=== PATIENT | male | born 1945 | race Caucasian/White ===

== ENCOUNTER 2023-10-26 12:36 | Emergency (ER) | payer MEDICARE, OTHER, SELFPAY ==
[2023-10-26] VITALS (31 sets, daily range): BP systolic 156–241; BP diastolic 78–112; PULSE 55–75; RESP 8–24; TEMP 36.6–36.9; O2SAT 94–99; BMI 36.4
--- NOTE | 2023-10-26 12:44 | DI.RAD.S_ITS ---
PROCEDURE: XR CHEST 1V INDICATIONS: chest pain TECHNIQUE: One view of the chest was acquired. COMPARISON: [facility], CT, THORAX WITHOUT CONTRAST, 07/09/2016, 9:42. [facility], CR, CHEST 1 VIEW, 02/22/2013, 12:06. FINDINGS: Surgical changes and devices: None. Lungs and pleura: Lungs are clear. No pleural effusions or pneumothorax. Mediastinum: Mediastinal contours appear normal. Heart size is enlarged. Bones and chest wall: No suspicious bony lesions. Overlying soft tissues appear unremarkable. IMPRESSION: No acute cardiopulmonary abnormality is seen. Dictated by: Gladis Becker M.D. on 10/26/2023 at 14:09 Approved by: Gladis Becker M.D. on 10/26/2023 at 14:11
--- NOTE | 2023-10-26 12:49 | EKG_ITS ---
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
[2023-10-26 13:30] LABS: Add Manual Diff / Slide Review NO; Basophils Absolute Auto 0 /uL (0-100); Basophils Percent Auto 0.5 % (0-2); Eosinophils Absolute Auto 300 /uL (0-450); Eosinophils Percent Auto 5.3 % (2-4); Hematocrit 36.6 % (41-53); Hemoglobin 12.5 g/dL (13.5-17.5); Lymphocytes Absolute Auto 1500 /uL (1100-4500); Lymphocytes Percent Auto 27.9 % (25-40); Mean Corpuscular HGB Conc 34.1 % (30-36); Mean Corpuscular Volume 99.6 fL (80-100); Monocytes Absolute Auto 300 /uL (0-900); Monocytes Percent Auto 5.7 % (3-14); Neutrophils Absolute Auto 3200 /uL (1500-7000); Neutrophils Percent Auto 60.6 % (50-75); Platelet Count 174 X10^3/uL (150-400); Red Blood Cell Count 3.67 X10^6/uL (4.5-5.9); Red Cell Distribution Width 17.1 % (11.6-14.8); White Blood Cell Count 5.4 X10^3/uL (4.5-11.0)
[2023-10-26 13:34] LABS: INR 1.1 (0.9-1.3); Prothrombin Time 12.2 SECONDS (9.4-12.5)
--- NOTE | 2023-10-26 13:34 | PC.NURSE ---
pt is here for elevated blood pressure that he noticed two days ago. reports no chest pain, vision changes, n/v, headaches. takes metoprolol. has family in town so has been drinking several whiskey drinks daily.
[2023-10-26 13:36] LABS: PTT Partial Thromboplastin Tim 35 SECONDS (25.1-36.5)
[2023-10-26 13:38] LABS: Alanine Aminotransferase 28 IU/L (<50); Albumin 3.9 g/dL (3.5-5.0); Albumin Globulin Ratio 1.6 (1.0-2.8); Alkaline Phosphatase 99 U/L (38-126); Aspartate Aminotransferase 30 IU/L (17-59); BUN Creatinine Ratio 22.5 (6-22); Bilirubin Total 0.8 mg/dL (0.2-1.3); Blood Urea Nitrogen 18 mg/dL (9-20); Calcium 9.5 mg/dL (8.4-10.2); Carbon Dioxide 28 mmol/L (22-32); Chloride 104 mmol/L (98-107); Creatine Kinase 84 U/L (55-170); Estimated Glomerular Filt Rate > 60 mL/min (>60); Globulin 2.5 g/dL (1.7-4.1); Glucose 148 mg/dL (80-110); HEMOLYSIS < 15 (0-50); Lipase 62 U/L (23-300); Magnesium 2.1 mg/dL (1.6-2.3); Potassium 4.1 mmol/L (3.4-5.1); Sodium 134 mmol/L (137-145); Total Protein 6.4 g/dL (6.3-8.2)
[2023-10-26 13:50] LABS: Troponin I < 0.012 ng/mL (0.01-0.034)
--- NOTE | 2023-10-26 14:03 | ED.GENADULT ---
HPI - General Adult General Chief complaint: Hypertension Stated complaint: Rapid heartbeat, cardio patient Time Seen by Provider: 10/26/23 13:36 Source: patient Mode of arrival: Ambulatory History of Present Illness HPI narrative: Patient here with for asymptomatic elevated blood pressure. They are visiting from out of state. They live in [place]. They are visiting here family for of a new great grandchild. Patient takes metoprolol daily for high blood pressure. He was taken off lisinopril 7 months ago. He is uncertain if he was ever on 2 blood pressure medications. Patient denies denies any chest pain headache shortness of breath numbness tingling or weakness. No palpitations. Patient has history of coronary stent years ago. History of diabetes. Patient states and agrees they have not been eating there usual diet. Has been eating out at restaurants a lot since visiting here last . He has been drinking alcohol which he usually does not. He does not get intoxicated. He noticed that his hands and feet have been swollen since this dietary change visiting here last week. He states there was no reason why he measured his blood pressure last Thursday but noticed that his baseline systolic 120 or sometimes 130 had change to upwards 170 or 180 systolic morning or nighttime. Again, denies any symptoms. No headache no numbness tingling or weakness no slurred speech Related Data Home Medications Medication Instructions Recorded Confirmed COENZYME Q10/VITAMIN E (CO-Q-10 300 mg PO QDAY ##0 02/22/13 200mg) Glucosamine Sulfate (GLUCOSAMINE) 1,000 mg PO QDAY #0 caps 02/22/13 OMEPRAZOLE 20 mg PO QDAY #0 caps 02/22/13 [ATOVASTATIN] 20 QDAY ##0 02/22/13 cetirizine 10 mg tablet 10 mg PO #0 tabs 02/22/13 doxazosin 4 mg tablet (Cardura) 4 mg PO QDAY #0 tabs 02/22/13 lisinopril 10 mg tablet 10 mg PO QDAY #0 tabs 02/22/13 testosterone cypionate 200 mg/mL 200 mg IM ##0 02/22/13 intramuscular oil (Depo-Testosterone) venlafaxine 37.5 mg tablet 37.5 mg PO QDAY #0 tabs 02/22/13 Previous Rx's Medication Instructions Recorded lisinopril 20 mg tablet 20 mg PO DAILY #14 tabs 10/26/23 Allergies Allergy/AdvReac Type Severity Reaction Status Date / Time Penicillins [PENICILLINS] Allergy Unknown Verified 10/26/23 12:58 Review of Systems Review of Systems Narrative: GENERAL: negative chills, fatigue, malaise, fever, sweats. HEENT: negative sinus pain, ear pain, sore throat RESPIRATORY: negative dyspnea, cough CARDIOVASCULAR: negative chest pain, palpitations GASTROINTESTINAL: negative nausea, vomiting, abdominal pain : negative dysuria, frequency, hematuria MUSCULOSKELETAL: negative muscle or bony pain, positive peripheral edema SKIN: negative rash, skin lesions NEUROLOGIC: negative weakness, numbness ROS Unobtainable: All systems reviewed & are unremarkable except as noted in HPI and below Patient History Social History Smoking Status: Former smoker Smoking Status: Former smoker alcohol intake frequency: other Substance Use Type: does not use Exam Narrative Exam Narrative: GENERAL: in no distress, not toxic not dyspneic HEAD: Normocephalic. EYES: Pupils equal round ENT: Mucous membranes moist. NECK: Trachea midline. CARDIOVASCULAR: Regular rate and rhythm RESPIRATORY: Clear to auscultation. Breath sounds equal bilaterally. No wheezes, rales, or rhonchi. GASTROINTESTINAL: Abdomen soft, non-tender EXTREMITIES: No gross deformities. Examination limbs, edematous fingers, patient states can not get his wedding band off. There is 2+ edema of the ankles. BACK: No flank tenderness. NEURO: AOx4. 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 Negative pronator drift. SKIN: Warm and dry PSYCH: Not anxious, is cooperative Initial Vital Signs Initial Vital Signs: Vital Signs Pulse Oximetry 97 10/26/23 12:48 Course Orders Ordered: Discontinued Medications Aspirin (Aspirin 81 Mg Chew Tab) 324 mg PO NOW ONE Stop: 10/26/23 12:45 Last Admin: 10/26/23 12:51 Dose: Not Given Documented By: DARIELA Hydralazine HCl (Hydralazine 20 Mg/Ml Vial) 10 mg IV NOW ONE Stop: 10/26/23 17:21 Last Admin: 10/26/23 18:00 Dose: 10 mg Documented By: Hydrochlorothiazide (Hydrochlorothiazide 25 Mg Tablet) 25 mg PO NOW ONE Stop: 10/26/23 14:13 Last Admin: 10/26/23 14:39 Dose: 25 mg Documented By: ALBERTO Lisinopril (Lisinopril 20 Mg Tablet) 20 mg PO NOW ONE Stop: 10/26/23 15:49 Last Admin: 10/26/23 16:00 Dose: 20 mg Documented By: ALBERTO Vital Signs Vital signs: Vital Signs - 8 hr 10/26/23 12:48 10/26/23 12:49 10/26/23 12:49 Temperature Pulse Rate 64 Respiratory Rate 21 Blood Pressure 197/89 H Pulse Oximetry 97 97 Oxygen Delivery Method 10/26/23 12:52 10/26/23 13:00 10/26/23 13:13 Temperature 98 F Pulse Rate 61 63 Respiratory Rate 16 Blood Pressure 197/89 H 173/78 H Pulse Oximetry 97 97 Oxygen Delivery Method Room Air 10/26/23 13:13 10/26/23 13:29 10/26/23 13:30 Temperature Pulse Rate 63 62 Respiratory Rate 21 Blood Pressure 178/80 H Pulse Oximetry 96 94 Oxygen Delivery Method 10/26/23 13:30 10/26/23 14:00 10/26/23 14:01 Temperature Pulse Rate 61 59 L Respiratory Rate 22 21 Blood Pressure 188/81 H Pulse Oximetry 95 94 Oxygen Delivery Method 10/26/23 14:01 10/26/23 14:30 10/26/23 14:31 Temperature Pulse Rate 59 L 58 L Respiratory Rate 23 Blood Pressure 200/89 H Pulse Oximetry 94 97 Oxygen Delivery Method 10/26/23 14:31 10/26/23 15:02 10/26/23 15:06 Temperature Pulse Rate 58 L 58 L Respiratory Rate 20 Blood Pressure 241/107 H Pulse Oximetry 97 99 Oxygen Delivery Method 10/26/23 15:06 10/26/23 15:08 10/26/23 15:08 Temperature Pulse Rate 58 L 56 L Respiratory Rate Blood Pressure 199/86 H Pulse Oximetry 99 98 Oxygen Delivery Method Room Air 10/26/23 15:30 10/26/23 15:31 10/26/23 15:31 Temperature Pulse Rate 56 L 58 L Respiratory Rate Blood Pressure 206/87 H Pulse Oximetry 96 96 Oxygen Delivery Method 10/26/23 15:34 10/26/23 15:34 10/26/23 16:00 Temperature Pulse Rate 58 L 57 L Respiratory Rate Blood Pressure 194/78 H 209/86 H Pulse Oximetry 97 Oxygen Delivery Method 10/26/23 16:00 10/26/23 16:01 10/26/23 16:03 Temperature Pulse Rate 57 L 55 L Respiratory Rate 24 22 Blood Pressure 209/86 H Pulse Oximetry 98 97 Oxygen Delivery Method 10/26/23 16:03 10/26/23 16:30 10/26/23 16:31 Temperature Pulse Rate 60 63 Respiratory Rate 14 9 L Blood Pressure 198/91 H Pulse Oximetry 98 96 Oxygen Delivery Method 10/26/23 16:31 10/26/23 16:56 10/26/23 16:56 Temperature Pulse Rate 63 71 Respiratory Rate 8 L 24 Blood Pressure 202/112 H Pulse Oximetry 97 97 Oxygen Delivery Method 10/26/23 17:00 10/26/23 17:00 10/26/23 17:30 Temperature Pulse Rate 70 69 Respiratory Rate 24 18 Blood Pressure 191/79 H Pulse Oximetry 96 97 Oxygen Delivery Method 10/26/23 17:56 10/26/23 17:56 10/26/23 18:00 Temperature Pulse Rate 71 70 Respiratory Rate Blood Pressure 189/85 H Pulse Oximetry 97 96 Oxygen Delivery Method 10/26/23 18:01 10/26/23 18:01 10/26/23 18:30 Temperature Pulse Rate 70 72 Respiratory Rate Blood Pressure 190/83 H Pulse Oximetry 97 98 Oxygen Delivery Method 10/26/23 18:31 10/26/23 18:31 Temperature Pulse Rate 75 Respiratory Rate Blood Pressure 156/96 H Pulse Oximetry 98 Oxygen Delivery Method Medical Decision Making Lab Data 10/26/23 13:14 10/26/23 13:14 Labs: Lab Results 10/26/23 Range/Units 13:14 WBC 5.4 (4.5-11.0) X10^3/uL RBC 3.67 L (4.5-5.9) X10^6/uL Hgb 12.5 L (13.5-17.5) g/dL Hct 36.6 L (41-53) % MCV 99.6 (80-100) fL MCH 34.0 (26-34) PG MCHC 34.1 (30-36) % RDW 17.1 H (11.6-14.8) % Plt Count 174 (150-400) X10^3/uL Neut % (Auto) 60.6 (50-75) % Lymph % (Auto) 27.9 (25-40) % [place] % (Auto) 5.7 (3-14) % Eos % (Auto) 5.3 H (2-4) % Baso % (Auto) 0.5 (0-2) % Neut # (Auto) 3200 (9885-7917) /uL Lymph # (Auto) 1500 (8202-0889) /uL [place] # (Auto) 300 (0-900) /uL Eos # (Auto) 300 (0-450) /uL Baso # (Auto) 0 (0-100) /uL PT 12.2 (9.4-12.5) SECONDS INR 1.1 (0.9-1.3) APTT 35 (25.1-36.5) SECONDS Sodium 134 L (137-145) mmol/L Potassium 4.1 (3.4-5.1) mmol/L Chloride 104 (98-107) mmol/L Carbon Dioxide 28 (22-32) mmol/L BUN 18 (9-20) mg/dL Creatinine 0.80 (0.66-1.25) mg/dL Estimated GFR > 60 (>60) mL/min BUN/Creatinine Ratio 22.5 H (6-22) Glucose 148 H (80-110) mg/dL Calcium 9.5 (8.4-10.2) mg/dL Magnesium 2.1 (1.6-2.3) mg/dL Total Bilirubin 0.8 (0.2-1.3) mg/dL AST 30 (17-59) IU/L ALT 28 (<50) IU/L Alkaline Phosphatase 99 (38-126) U/L Total Creatine Kinase 84 (55-170) U/L Troponin I < 0.012 (0.01-0.034) ng/mL Total Protein 6.4 (6.3-8.2) g/dL Albumin 3.9 (3.5-5.0) g/dL Globulin 2.5 (1.7-4.1) g/dL Albumin/Globulin Ratio 1.6 (1.0-2.8) Lipase 62 (23-300) U/L Imaging Data Chest x-ray: Radiologist's Impression: [address] [address] XRay Report Signed Patient: Teofilo Gonzales MR#: [id number] : 1945 Acct:[id number] Age/Sex: 78 / M Date of Service: 10/26/23 Loc: ED Accession Number: [id number] Procedure: XR chest 1V Ordering Provider: Al Souza MD PROCEDURE: XR CHEST 1V INDICATIONS: chest pain TECHNIQUE: One view of the chest was acquired. COMPARISON: [facility], CT, THORAX WITHOUT CONTRAST, 07/09/2016, 9:42. [facility], CR, CHEST 1 VIEW, 02/22/2013, 12:06. FINDINGS: Surgical changes and devices: None. Lungs and pleura: Lungs are clear. No pleural effusions or pneumothorax. Mediastinum: Mediastinal contours appear normal. Heart size is enlarged. Bones and chest wall: No suspicious bony lesions. Overlying soft tissues appear unremarkable. IMPRESSION: No acute cardiopulmonary abnormality is seen. Dictated by: Gladis Becker M.D. on 10/26/2023 at 14:09 Approved by: Gladis Becker M.D. on 10/26/2023 at 14:11 [facility] Narrative Medical decision making narrative: Patient here with for asymptomatic elevated blood pressure. They are visiting from out of state. They live in [place]. They are visiting here family for of a new great grandchild. Patient takes metoprolol daily for high blood pressure. He was taken off lisinopril 7 months ago. He is uncertain if he was ever on 2 blood pressure medications. Patient denies denies any chest pain headache shortness of breath numbness tingling or weakness. No palpitations. Patient has history of coronary stent years ago. History of diabetes. Patient states and agrees they have not been eating there usual diet. Has been eating out at restaurants a lot since visiting here last . He has been drinking alcohol which he usually does not. He does not get intoxicated. He noticed that his hands and feet have been swollen since this dietary change visiting here last week. He states there was no reason why he measured his blood pressure last Thursday but noticed that his baseline systolic 120 or sometimes 130 had change to upwards 170 or 180 systolic morning or nighttime. Again, denies any symptoms. No headache no numbness tingling or weakness no slurred speech or facial droop After history and exam CBC CMP troponin EKG chest x-ray [facility] Medical records reviewed: Differential considered: Includes but not limited to Lab Test results independently reviewed as above. Pertinent findings: WBC 5.4 hemoglobin 12.5 sodium 134 potassium 4.1 BUN 18 creatinine 0.8 GFR greater than 60 glucose 148 troponin less than 0.012 Independently reviewed EKG sinus rhythm rate [address] elevation or depression artifact noted on lead 2 and 3 Imaging studies independently reviewed: Chest x-ray no acute finding Consultations: 2:24 p.m.. Spoke with Cardiology, Dr. Mahendra Moore, he agrees at this time, start patient on hydrochlorothiazide daily. Until he gets back to his primary care to have his laboratory studies rechecked. 5:26 p.m.. Spoke with hospitalist, Dr. Garcia, recommends hydralazine IV Treatments: Hydrochlorothiazide, lisinopril, hydralazine Re-evaluations: 3:50 p.m.. Updated patient and . Blood pressure still elevated, systolic 194. We will try lisinopril. 5:30 p.m.. Updated patient medication treatment plan with hydralazine. He agrees. Currently symptom-free as well 6:30 p.m.. Blood pressure 156/96. Patient remains asymptomatic. Appropriate for discharge home. Patient and family agree. They will see family doctor this week for re-evaluation of blood pressure and medication management. Return precautions reviewed. They desire discharge home Discussion: Appropriate for discharge home exam is reassuring. Return precautions reviewed. Patient is asymptomatic during course of stay. Cardiology and hospitalist services consulted for medications. Patient agrees with treatment plan. He is leaving tomorrow morning to return back to [place]. He will see his family doctor this week. Diagnosis: Hypertension Discharge Plan Departure Patient Disposition: Home Clinical Impression: Hypertension Qualifiers: Hypertension type: unspecified Qualified Code(s): I10 - Essential (primary) hypertension Instructions: DI for High Blood Pressure Activity Restrictions/Additional Instructions: Please continue your metoprolol blood pressure medication tonight. Prescription for lisinopril has been provided for you to continue tomorrow morning. Please get this filled before you leave to return home. See your family doctor this week when you do return home for recheck of your blood pressure and medication changes. Return if worse if any questions or concerns. Today's laboratory studies are reassuring. As well chest x-ray. Prescriptions: New lisinopril 20 mg tablet 20 mg PO DAILY Qty: 14 0RF No Action doxazosin [Cardura] 4 MG tablet 4 mg PO QDAY Qty: 0 OMEPRAZOLE 20 mg PO QDAY Qty: 0 [ATOVASTATIN] 20 QDAY Qty: 0 lisinopril 10 MG tablet 10 mg PO QDAY Qty: 0 venlafaxine 37.5 MG tablet 37.5 mg PO QDAY Qty: 0 testosterone cypionate [Depo-Testosterone] 200 MG/1 ML oil 200 mg IM Qty: 0 COENZYME Q10/VITAMIN E (CO-Q-10 200mg) 300 mg PO QDAY Qty: 0 Glucosamine Sulfate (GLUCOSAMINE) 1,000 mg PO QDAY Qty: 0 cetirizine 10 MG tablet 10 mg PO Qty: 0 Referrals: Jeremías Hoang MD [Primary Care Provider] - Stand Alone Forms: Patient Portal/API
--- NOTE | 2023-10-26 14:26 | EKG_ITS ---
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
[2023-10-26] MEDS: hydroCHLOROthiazide 25 MG TABLET PO (14:39)
[2023-10-26] MEDS: lisinopriL 20 MG TABLET PO (16:00)
[2023-10-26] MEDS: HYDRALAZINE 20 MG/ML VIAL 10 MG IV (18:00)
--- NOTE | 2023-10-26 18:32 | PC.NURSE ---
recent blood pressure is 156/96, pt is not reporting any n/v, chest pain, palpitations, ambulating to the bathroom
== END 2023-10-26 18:50 | disposition home or self-care (01) ==
PROVIDERS: Emergency Provider Emergency Medicine; Family Provider Internal Medicine Critical Care Medicine; PCP Family Medicine Geriatric Medicine
DX: I10 Essential (primary) hypertension (principal); R07.9 Chest pain, unspecified
CPT/HCPCS: 36415; 71045; 80053; 82550; 83690; 83735; 84484; 85025; 85610; 85730; 93005; 96374; 99284; J0360